=== PATIENT | female | born 1935 | race Caucasian/White ===

== ENCOUNTER 2018-06-16 14:23 | Emergency (ER) | payer MEDICARE, OTHER ==
--- NOTE | 2018-06-16 14:35 | EDM.PDOC ---
ED HPI GENERAL MEDICAL PROBLEM - General Stated Complaint: LIGHTHEADED, DIZZY Time Seen by Provider: 06/16/18 14:34 Source of Information: Reports: Patient - History of Present Illness INITIAL COMMENTS - FREE TEXT/NARRATIVE: Patient felt chilled. She has recently saw her oncologist and things are going well for her left breast cancer. She says that she has concerns of being low on iron. Her regular doctor is Dr. Steele. I did do an EKG that was normal. I also did blood work and also a portable chest x-ray. A urine culture will be done. I did talk to Dr. Zuniga about 4:15. We agreed that the patient could return in the morning and have her hemoglobin drawn. Her hemoglobin had previously been 13.37 months ago. She will see her primary tomorrow. She is to return here sooner if she has any issues with lightheadedness. I believe that she will be compliant. She does have a nice swelling of one floor living and plenty of friends that will check on her. She agreed that she would rather stay home tonight and she will return tomorrow. She has had history of polyps in the past. She says that she is probably due for a colonoscopy I her 83st birthday. She has not had any black or tarry stools. She has never been on iron. Onset: Gradual Location: Reports: Generalized Associated Symptoms: Reports: Loss of Appetite, Malaise, Weakness - Related Data Allergies Allergy/AdvReac Type Severity Reaction Status Date / Time iodine Allergy Cannot Verified 08/25/13 14:03 Remember Home Meds: Home Meds . [No Known Home Meds] 08/25/13 [History] Past Medical History - Past Surgical History GI Surgical History: Reports: Cholecystectomy Oncologic Surgical History: Reports: Mastectomy Social & Family History - Tobacco Use Smoking Status *Q: Never Smoker ED ROS GENERAL - Review of Systems Review Of Systems: ROS reveals no pertinent complaints other than HPI. ED EXAM, GENERAL - Physical Exam Exam: See Below Exam Limited By: No Limitations General Appearance: Alert, Mild Distress, Moderate Distress Respiratory/Chest: No Respiratory Distress, Lungs Clear, Normal Breath Sounds, No Accessory Muscle Use, Chest Non-Tender Cardiovascular: Normal Peripheral Pulses, Regular Rate, Rhythm, No Edema, No Gallop, No JVD, No Murmur, No Rub GI/Abdominal: Normal Bowel Sounds, Soft, Non-Tender, No Organomegaly, No Distention, No Abnormal Bruit, No Mass Psychiatric: Normal Affect, Normal Mood Skin Exam: Warm, Dry EKG INTERPRETATION Rhythm: NSR Course - Vital Signs Last Recorded V/S: Last Vital Signs Temp 37.2 C 06/16/18 14:35 Pulse 106 H 06/16/18 14:35 Resp 20 06/16/18 14:35 BP 160/86 H 06/16/18 15:16 Pulse Ox 97 06/16/18 14:35 - Orders/Labs/Meds Orders: Active Orders 24 hr Category Date Time Status EKG 12 Lead [EKG Documentation Completion] [RC] STAT Care 06/16/18 14:44 Active CULTURE URINE [RM] Stat Lab 06/16/18 14:47 Received Labs: Laboratory Tests 06/16/18 06/16/18 06/16/18 Range/Units 14:55 14:55 15:43 WBC 8.8 (4.0-10.0) x10^3/uL RBC 3.63 L (4.00-5.50) x10^6/uL Hgb 8.5 L (12.0-16.0) g/dL Hct 28.4 L (33.0-47.0) % MCV 78.2 (78.0-93.0) fL MCH 23.4 L (26.0-32.0) pg MCHC 29.9 L (32.0-36.0) g/dL RDW Coeff of Castillo 17.0 H (10.0-15.0) % Plt Count 232 (130-400) x10^3/uL Neut % (Auto) 57.9 (50.0-80.0) % Lymph % (Auto) 35.9 (25.0-50.0) % [place] % (Auto) 5.8 (2.0-11.0) % Eos % (Auto) 0.3 (0.0-4.0) % Baso % (Auto) 0.1 L (0.2-1.2) % Sodium 140 (136-145) mmol/L Potassium 3.9 (3.5-5.1) mmol/L Chloride 104 (98-107) mmol/L Carbon Dioxide 26 (21-32) mmol/L Anion Gap 13.9 (10-20) mmol/L BUN 17 (7-18) mg/dL Creatinine 1.1 H (0.55-1.02) mg/dL Est Cr Clr Drug Dosing 33.74 mL/min Estimated GFR (MDRD) 48 Glucose 275 H (74-106) mg/dL Calcium 8.6 (8.5-10.1) mg/dL Corrected Calcium 9.24 (8.5-10.1) mg/dL Magnesium 1.7 L (1.8-2.4) mg/dL Total Bilirubin 0.3 (0.2-1.0) mg/dL AST 14 L (15-37) U/L ALT 14 (14-59) U/L Alkaline Phosphatase 80 (46-116) U/L C-Reactive Protein 0.7 (<=0.9) mg/dL Total Protein 6.8 (6.4-8.2) g/dL Albumin 3.2 L (3.4-5.0) g/dL Globulin 3.6 Albumin/Globulin Ratio 0.89 Urine Color Yellow (YELLOW) Urine Appearance Slightly cloudy H (CLEAR) Urine pH 5.5 (5.0-8.0) Ur Specific [place] 1.025 Urine Protein Negative (NEGATIVE) mg/dL Urine Glucose (UA) 500 H (NEGATIVE) mg/dL Urine Ketones Negative (NEGATIVE) mg/dL Urine Occult Blood Negative (NEGATIVE) Urine Nitrite Negative (NEGATIVE) Urine Bilirubin Negative (NEGATIVE) Urine Urobilinogen 0.2 (0.2) EU/dL Ur Leukocyte Esterase Negative (NEGATIVE) Urine RBC 0-5 (NOT SEEN) /HPF Urine WBC 0-5 (NOT SEEN) /HPF Ur Squamous Epith Cells Few H (NEGATIVE) /HPF Urine Bacteria Few H (NEGATIVE) /HPF Urine Mucus Rare H (NEGATIVE) /LPF Meds: Medications Discontinued Medications Generic Name Dose Route Start Last Admin Trade Name Freq PRN Reason Stop Dose Admin Sodium Chloride 1,000 mls @ 999 mls/hr 06/16/18 15:12 06/16/18 15:16 Normal Saline IV 06/16/18 16:12 999 mls/hr .BOLUS ONE Administration Departure - Departure Time of Disposition: 16:26 Disposition: Home, Self-Care 01 Condition: Good Clinical Impression: Light-headed feeling - Discharge Information *PRESCRIPTION DRUG MONITORING PROGRAM REVIEWED*: Not Applicable *COPY OF PRESCRIPTION DRUG MONITORING REPORT IN PATIENT HONORIO: Not Applicable Instructions: Dizziness, [id number] Referrals: Yfn Hanley MD [Primary Care Provider] - Additional Instructions: Here hemoglobin was 8.5. 7 months ago it was 13.3. I talked to Dr. Daugherty. We agreed that you could come back to the clinic tomorrow morning and see her primary or one of his colleagues and have your blood drawn again for another hemoglobin. Your urine will be cultured. Return here if you feel your lightheadness is getting worse. - My Orders Last 24 Hours: My Active Orders 06/16/18 14:44 EKG 12 Lead [EKG Documentation Completion] [RC] STAT 06/16/18 14:47 CULTURE URINE [RM] Stat - Assessment/Plan Last 24 Hours: My Active Orders 06/16/18 14:44 EKG 12 Lead [EKG Documentation Completion] [RC] STAT 06/16/18 14:47 CULTURE URINE [RM] Stat
[2018-06-16] MEDS ORDERED: Sodium Chloride 0.9% 1,000 ML IV ONE (15:12)
[2018-06-16 15:28] LABS: ANION GAP 13.9 mmol/L (10-20)
--- NOTE | 2018-06-16 16:01 | CR ---
[id number] RAD/RAD Chest PA or AP 1V EXAM: SINGLE VIEW CHEST. INDICATION: SHORTNESS OF BREATH COMPARISON: NO PREVIOUS SIMILAR EXAM IS AVAILABLE FINDINGS: The lungs are clear. There appears to be a large hiatal hernia or intrathoracic stomach. There are surgical clips in the left axillary region. The cardiac silhouette is enlarged. IMPRESSION: NO PNEUMONIA OR EDEMA. Cheikh Avilez MD 06/16/18 1600 Thank you for allowing us to participate in the care of your patient.
== END 2018-06-16 16:30 | disposition home or self-care (01) ==
LOC: VM.ED 14:23
DX: R42 Dizziness and giddiness (principal); Z88.8 Allergy status to other drugs, medicaments and biological substances
CPT/HCPCS: 71045; 80053; 81001; 83735; 85025; 86140; 87086; 93005; 93010; 96360; 99283; 99284; J7030

== ENCOUNTER 2018-11-24 17:55 | Emergency (ER) | payer MEDICARE, OTHER ==
[2018-11-24] MEDS ORDERED: Sodium Chloride 0.9% 1,000 ML IV ONE (18:16)
[2018-11-24] MEDS ORDERED: Meclizine 25 MG Tab PO ONE (18:16)
[2018-11-24] MEDS ORDERED: Sodium Chloride 0.9% 10 ML Syringe FLUSH PRN (18:16)
--- NOTE | 2018-11-24 18:22 | EDM.PDOC ---
<Liliam Man - Last Filed: 11/24/18 18:17> ED HPI GENERAL MEDICAL PROBLEM - General Chief Complaint: General Stated Complaint: DIZZY, NAUSIEA Time Seen by Provider: 11/24/18 18:10 Source of Information: Reports: Patient History Limitations: Reports: No Limitations - History of Present Illness INITIAL COMMENTS - FREE TEXT/NARRATIVE: Patient comes into the emergency department with complaint of dizziness and shaky feeling. Patient states that approximately 3 hours ago she began to get dizzy and shaky. She was at the home pain her respects to a friend who had and became dizzy and shaky. She ended up driving herself home habitable serial and called her friend bring her to emergency department. Patient denies any fever, nausea, vomiting, shortness breath, chest pain, abdominal pain, or peripheral edema. Patient states that the dizziness does not get worse or better with movement or rest. Patient states that she has been in and out of the heat the last couple days but does try to watch how long she is in the heat. She admits to not drinking a lot of water in her daily consumption however she feels it's adequate. Onset: Sudden Quality: Reports: Other Severity: Mild Improves with: Reports: None Worsens with: Reports: None Associated Symptoms: Reports: No Other Symptoms - Related Data Allergies Allergy/AdvReac Type Severity Reaction Status Date / Time iodine Allergy Cannot Verified 11/24/18 18:10 Remember chlorine Allergy Cannot Uncoded 11/24/18 18:10 Remember Home Meds: Home Meds Calcium Carb/Vitamin D3/Vit K1 [Viactiv Soft Chew Tablet] 1 each PO DAILY [History] Letrozole 2.5 mg PO BEDTIME 06/19/18 [History] Ferrous Sulfate 325 mg PO DAILY 11/24/18 [History] Past Medical History - Past Health History Medical/Surgical History: Denies Medical/Surgical History Hematologic History: Reports: Other (See Below) Other Hematologic History: chronic blood loss with low iron/Hgb Oncologic (Cancer) History: Reports: Breast - Past Surgical History GI Surgical History: Reports: Cholecystectomy Female Surgical History: Reports: Mastectomy Oncologic Surgical History: Reports: Mastectomy Social & Family History - Family History Family Medical History: Noncontributory - Tobacco Use Smoking Status *Q: Never Smoker ED ROS GENERAL - Review of Systems Review Of Systems: ROS reveals no pertinent complaints other than HPI. Constitutional: Reports: No Symptoms HEENT: Reports: No Symptoms Respiratory: Reports: No Symptoms Cardiovascular: Reports: No Symptoms GI/Abdominal: Reports: No Symptoms : Reports: No Symptoms Musculoskeletal: Reports: No Symptoms Skin: Reports: No Symptoms Neurological: Reports: No Symptoms Psychiatric: Reports: No Symptoms ED EXAM, GENERAL - Physical Exam Exam: See Below Exam Limited By: No Limitations General Appearance: Alert, WD/WN, No Apparent Distress Eye Exam: Bilateral Eye: EOMI, PERRL Head: Atraumatic, Normocephalic Respiratory/Chest: No Respiratory Distress, Lungs Clear, Normal Breath Sounds, No Accessory Muscle Use, Chest Non-Tender Cardiovascular: Normal Peripheral Pulses, Regular Rate, Rhythm, No Edema, No Gallop, No JVD, No Murmur, No Rub GI/Abdominal: Normal Bowel Sounds, Soft, Non-Tender, No Organomegaly, No Distention, No Abnormal Bruit, No Mass Back Exam: Normal Inspection, Full Range of Motion, NT Extremities: Normal Inspection, Normal Range of Motion, Non-Tender, Normal Capillary Refill, No Pedal Edema Neurological: Alert, Oriented, Normal Gait Psychiatric: Normal Affect, Normal Mood Skin Exam: Warm, Dry, Intact, Normal Color, No Rash Course - Vital Signs Last Recorded V/S: Last Vital Signs Temp 36.9 C 11/24/18 18:11 Pulse 82 11/24/18 18:30 Resp 16 11/24/18 18:30 BP 160/84 H 11/24/18 18:37 Pulse Ox 99 11/24/18 18:30 - Orders/Labs/Meds Orders: Active Orders 24 hr Category Date Time Status Peripheral IV Insertion Adult [OM.PC] Stat Oth 11/24/18 18:16 Ordered Labs: Laboratory Tests 11/24/18 11/24/18 Range/Units 18:24 18:24 WBC 7.8 (4.0-10.0) x10^3/uL RBC 4.54 (4.00-5.50) x10^6/uL Hgb 13.6 D (12.0-16.0) g/dL Hct 41.5 (33.0-47.0) % MCV 91.4 D (78.0-93.0) fL MCH 30.0 (26.0-32.0) pg MCHC 32.8 (32.0-36.0) g/dL RDW Coeff of Castillo 14.8 (10.0-15.0) % Plt Count 165 (130-400) x10^3/uL Neut % (Auto) 57.7 (50.0-80.0) % Lymph % (Auto) 34.4 (25.0-50.0) % [place] % (Auto) 6.4 (2.0-11.0) % Eos % (Auto) 1.2 (0.0-4.0) % Baso % (Auto) 0.3 (0.2-1.2) % Sodium 140 (136-145) mmol/L Potassium 4.1 (3.5-5.1) mmol/L Chloride 104 (98-107) mmol/L Carbon Dioxide 26 (21-32) mmol/L Anion Gap 14.1 (10-20) mmol/L BUN 14 (7-18) mg/dL Creatinine 1.1 H (0.55-1.02) mg/dL Est Cr Clr Drug Dosing 33.18 mL/min Estimated GFR (MDRD) 48 Glucose 209 H (74-106) mg/dL Calcium 8.7 (8.5-10.1) mg/dL Corrected Calcium 9.26 (8.5-10.1) mg/dL Total Bilirubin 0.3 (0.2-1.0) mg/dL AST 19 (15-37) U/L ALT 17 (14-59) U/L Alkaline Phosphatase 85 (46-116) U/L Total Protein 6.8 (6.4-8.2) g/dL Albumin 3.3 L (3.4-5.0) g/dL Globulin 3.5 Albumin/Globulin Ratio 0.94 Meds: Medications Discontinued Medications Generic Name Dose Route Start Last Admin Trade Name Freq PRN Reason Stop Dose Admin Sodium Chloride 1,000 mls @ 1,000 mls/hr 11/24/18 18:16 11/24/18 18:34 Normal Saline IV 11/24/18 19:15 1,000 mls/hr ONETIME ONE Administration Meclizine HCl 25 mg 11/24/18 18:16 11/24/18 18:34 Antivert PO 11/24/18 18:17 25 mg ONETIME ONE Administration Sodium Chloride 10 ml 11/24/18 18:16 Saline Flush FLUSH ASDIRECTED PRN Keep Vein Open Departure - Departure Disposition: Home, Self-Care 01 Clinical Impression: Vertigo - Discharge Information Instructions: Vertigo Referrals: Yfn Hanley MD [Primary Care Provider] - Forms: ED Department Discharge Additional Instructions: Home to rest. Drink plenty of fluids. Have a good meal tonight. Follow-up in the clinic if you are still having symptoms. - Assessment/Plan Assessment:: 1. dizzy Plan: 1. Labs completed in the ER. 2. Fluids given in the ER. 3. Christiano MENJIVAR was given report and will assume care of the patient. <Christiano Dooley W - Last Filed: 11/25/18 10:41> Departure - Departure Time of Disposition: 19:32 - Assessment/Plan Plan: Home to rest. Drink plenty of fluids. Have a good meal tonight. Follow-up in the clinic if you are still having symptoms.
[2018-11-24 19:00] LABS: ANION GAP 14.1 mmol/L (10-20)
== END 2018-11-24 19:32 | disposition home or self-care (01) ==
LOC: VM.ED 17:55
DX: R42 Dizziness and giddiness (principal); Z91.048 Other nonmedicinal substance allergy status; Z79.899 Other long term (current) drug therapy
CPT/HCPCS: 80053; 85025; 96360; 99283; A9270; J7030

== ENCOUNTER 2021-08-23 09:55 | Emergency (ER) | payer MEDICARE, OTHER ==
[2021-08-23 10:51] LABS: CHLORIDE,CL 105 mmol/L (98-107); SODIUM,NA 136 mmol/L (136-145)
== END 2021-08-23 16:20 | disposition home or self-care (01) ==
LOC: VM.ED 09:55
DX: D50.9 Iron deficiency anemia, unspecified (principal); Z91.041 Radiographic dye allergy status; Z91.048 Other nonmedicinal substance allergy status
CPT/HCPCS: 36415; 36430; 80053; 81001; 82274; 82728; 85008; 85014; 85018; 86140; 86850; 86900; 86901; 86920; 86922; 87086; 87088; 87186; 99284; P9016

== ENCOUNTER 2021-09-05 11:05 | Emergency (ER) | payer MEDICARE, OTHER ==
[2021-09-05 12:21] LABS: CHLORIDE,CL 106 mmol/L (98-107); SODIUM,NA 140 mmol/L (136-145)
== END 2021-09-05 13:22 | disposition home or self-care (01) ==
LOC: VM.ED 11:05
DX: R42 Dizziness and giddiness (principal); Z91.048 Other nonmedicinal substance allergy status; Z88.8 Allergy status to other drugs, medicaments and biological substances
CPT/HCPCS: 36415; 71045; 80053; 81001; 83735; 84100; 84443; 84484; 85025; 93005; 99284; 99284-25